=== PATIENT | male | born 1980 | race American Indian/Alaskan Native ===

== ENCOUNTER 2017-08-13 17:24 | Emergency (ER) | payer SELFPAY ==
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
[2017-08-13] MEDS: FLEXERIL PO ONE (23:40)
[2017-08-13] MEDS: NORCO 5/325 PO ONE (23:41)
[2017-08-14] MEDS: FLEXERIL PO ONE (00:01)
[2017-08-14] MEDS: NORCO 5/325 PO ONE (00:01)
[2017-08-14] MEDS ORDERED: MOTRIN PO ONE (00:38)
[2017-08-14 01:56] VITALS: BP 119/86
== END 2017-08-14 01:54 | disposition home or self-care (01) ==
LOC: ED 17:24
DX: S16.1XXA Strain of muscle, fascia and tendon at neck level, initial encounter (principal); S39.012A Strain of muscle, fascia and tendon of lower back, initial encounter; V43.62XA Car passenger injured in collision with other type car in traffic accident, initial encounter; Y93.89 Activity, other specified; Y92.89 Other specified places as the place of occurrence of the external cause; Y99.8 Other external cause status
CPT/HCPCS: 99282